=== PATIENT | male | born 1990 | race Two or more races ===

== ENCOUNTER 2022-03-26 23:28 | Emergency (ER) | payer OTHER ==
[~2022-03-26] VITALS: Ht 190.5 cm; Wt 77.1 kg
[2022-03-27] MEDS ORDERED: ONDANSETRON ODT4 MG PO (06:09)
[2022-03-27] MEDS ORDERED: PEPCID AC20 MG PO (06:09)
== END 2022-03-27 06:30 ==
LOC: ER 23:28
DX: E86.0 Dehydration (principal); F12.929 Cannabis use, unspecified with intoxication, unspecified; K29.70 Gastritis, unspecified, without bleeding